=== PATIENT | male | born 1970 | race Two or more races ===

== ENCOUNTER 2019-08-02 21:09 | Emergency (ER) | payer MEDICAID ==
[~2019-08-02] VITALS: Ht 167.6 cm; Wt 75.0 kg
[2019-08-02 21:23] VITALS: BP 136/92
[2019-08-02] MEDS ORDERED: UNKNOWN PSYCH MED PO (21:29)
[2019-08-02] MEDS ORDERED: TRAM100T28 PO (21:29)
[2019-08-02] MEDS ORDERED: TRAM50TA4 PO (21:32)
[2019-08-02] MEDS ORDERED: ESCI5TAB12 PO (21:32)
[2019-08-02] MEDS ORDERED: TRAZ-184 PO (21:32)
[2019-08-02] MEDS ORDERED: OxyCODONE HCL/ACETAMINOPHEN 5-325 MG TABLET PO ONE (23:15)
[2019-08-02] MEDS ORDERED: PERTUSS(ACELL),DIPH,TET VAC/PF 0.5 ML VIAL IM ONE (23:15)
[2019-08-02] MEDS ORDERED: BACITRACIN/POLYMYXIN B 15 GM OINTMENT TP ONE (23:30)
== END 2019-08-03 00:07 | disposition home or self-care (01) ==
LOC: EMS 21:18
DX: T22.20XA Burn of second degree of shoulder and upper limb, except wrist and hand, unspecified site, initial encounter (principal); F32.9 Major depressive disorder, single episode, unspecified; X16.XXXA Contact with hot heating appliances, radiators and pipes, initial encounter; Y93.89 Activity, other specified; Y92.89 Other specified places as the place of occurrence of the external cause; Y99.8 Other external cause status
CPT/HCPCS: 16020; 90471; 90715

== ENCOUNTER 2022-08-21 16:35 | Emergency (ER) | payer MEDICAID ==
[~2022-08-21] VITALS: Ht 167.6 cm; Wt 70.5 kg
[~2022-08-21 16:35] MED LIST: ESCI5TAB16 PO; TRAM50TA4 PO; TRAZ-184 PO
[2022-08-21] MEDS ORDERED: BARIUM SULFATE 0.1% SUSPENSION 450 ML BOTTLE PO ONE (17:30)
[2022-08-21] MEDS ORDERED: MORPHINE SULFATE 4 MG/ML SYRINGE IVP ONE (17:30)
[2022-08-21] MEDS ORDERED: ONDANSETRON HCL 4 MG/2 ML VIAL IVP ONE (17:30)
[2022-08-21] MEDS ORDERED: SODIUM CHLORIDE 0.9% 1,000 ML IV ONE ×2 (17:30)
[2022-08-21 18:06] LABS: BASOPHILS % (AUTO) 1.5 % (0.0-2.0); EOSINOPHILS % (AUTO) 2.4 % (1.0-6.0); HEMATOCRIT 48.1 % (41-53); HEMOGLOBIN 16.1 g/dL (13.5-17.5); LYMPHOCYTES % (AUTO) 36.1 % (22.0-44.0); MEAN CORPUSCULAR HGB CONC 33.4 G/dL (31.0-37.0); MEAN CORPUSCULAR VOLUME 93 fL (80-100); MONOCYTES # (AUTO) 0.7 K/uL (0.1-1.0); MONOCYTES % (AUTO) 12.7 % (2.0-9.0); NEUTROPHILS # (AUTO) 2.6 K/uL (1.8-7.7); NEUTROPHILS % (AUTO) 47.3 % (40.0-70.0); PLATELET COUNT (AUTO) 222 K/uL (150-450); RED CELL DISTRIBUTION WIDTH 13.1 % (11.5-14.5)
[2022-08-21 18:13] LABS: ANION GAP 6 mmol/L (8-16); CARBON DIOXIDE 30 mmol/L (22-29); CHLORIDE 102 mmol/L (98-107); CREATININE 0.87 mg/dL (0.60-1.30); GLUCOSE,RANDOM 94 mg/dL (70-110); SODIUM SERUM 138 mmol/L (136-145); UREA NITROGEN, BLOOD 16 mg/dL (7-18)
[2022-08-21 18:14] LABS: CALCIUM, TOTAL 8.9 mg/dL (8.8-10.5)
[2022-08-21 18:18] LABS: GLOMERULAR FILTR. RATE CALC > 60 mL/min (>60)
[2022-08-21] MEDS ORDERED: IOHEXOL 350 MG/ML 100 ML VIAL ONE ×2 (18:18→18:48)
[2022-08-21] MEDS ORDERED: SODIUM CHLORIDE 0.9% 100 ML ONE ×2 (18:18→18:48)
[2022-08-21 18:20] LABS: ALANINE AMINOTRANSFERASE 43 U/L (12-78); ALBUMIN 3.9 g/dL (3.4-5.0); ALKALINE PHOSPHATASE 53 U/L (46-116); ASPARTATE AMINOTRANSFERASE 26 U/L (15-37); BILIRUBIN,TOTAL 0.6 mg/dL (0.1-1.0); LIPASE 177 U/L (73-393); TOTAL PROTEIN, SERUM 8.3 g/dL (6.4-8.2)
[2022-08-21 18:22] LABS: LACTIC ACID 1.2 mmol/L (0.4-2.0)
[2022-08-21 18:28] LABS: AMPHET/METH SCREEN,URINE NEGATIVE (NEGATIVE); BARBITURATE SCREEN, URINE NEGATIVE (NEGATIVE); BENZODIAZEPINES SCREEN,URINE NEGATIVE (NEGATIVE); CANNABINOID SCREEN,URINE NEGATIVE (NEGATIVE); COCAINE SCREEN,URINE NEGATIVE (NEGATIVE); METHADONE SCREEN, URINE NEGATIVE (NEGATIVE); OPIATE SCREEN,URINE NEGATIVE (NEGATIVE)
[2022-08-21 18:31] LABS: APPEARANCE,URINE CLEAR (CLEAR); BILIRUBIN,URINE NEGATIVE (NEGATIVE); GLUCOSE, URINE (UA) NEGATIVE (NEGATIVE); KETONES,URINE NEGATIVE (NEGATIVE); LEUKOCYTE ESTERASE ,URINE NEGATIVE (NEGATIVE); NITRATE,URINE NEGATIVE (NEGATIVE); OCCULT BLOOD,URINE NEGATIVE (NEGATIVE); PH,URINE 6.5 (5.0-8.0); PROTEIN,URINE NEGATIVE (NEGATIVE); SPECIFIC GRAVITIY, URINE 1.004 (1.003-1.030); UROBILINOGEN,URINE <=1.0 mg/dL (<=1.0)
[2022-08-21 18:32] LABS: PHENCYCLIDINE SCREEN,URINE NEGATIVE (NEGATIVE)
[2022-08-21 18:50] LABS: BACTERIA,URINE None Seen /HPF (None Seen); RBC,URINE None Seen /HPF (0-2); WBC,URINE None Seen /HPF (0-5)
[2022-08-21 19:40] VITALS: BP 115/80
[2022-08-21] MEDS ORDERED: ONDA-104 PO (19:56)
[2022-08-21] MEDS ORDERED: MAG30ORA11 PO (19:56)
[2022-08-21] MEDS ORDERED: PHEN28OI9 TP (19:56)
[2022-08-21] MEDS ORDERED: ACET-2080 PO (19:56)
[2022-08-21] MEDS ORDERED: OMEP20 PO (19:56)
== END 2022-08-21 20:21 | disposition home or self-care (01) ==
LOC: EMS 16:38
DX: R10.31 Right lower quadrant pain (principal); K52.9 Noninfective gastroenteritis and colitis, unspecified; K64.9 Unspecified hemorrhoids; F32.A Depression, unspecified; Z98.890 Other specified postprocedural states
CPT/HCPCS: 99285; 74177; 96374; 71045; 96361; 96375; 80053; 83605; 83690; 84484; 85025; 36415; 93005; 81001; 80307 ×2; J2270; J2405; Q9967; J7030; J7050